=== PATIENT | female | born 1990 | race Caucasian/White ===

== ENCOUNTER 2020-01-21 15:48 | Emergency (ER) | payer OTHER ==
[~2020-01-21] VITALS: Ht 162.6 cm; Wt 54.4 kg
[~2020-01-21 15:48] MED LIST: APTIOM400 MG PO; CARBAMAZEP200 MG/10 PO; CELLCEPT500 MG PO; CIPRO500 MG PO; CYPROHEPTADINE H4 MG PO; DELTASONE20 MG PO; DIL100 PO; KEP500 PO; KEPPRA750 MG PO; LEVAQUIN500 M1 PO; NASAL MIST126 ML; NATURE'S BLEND500 M3 PO; NORCO1 TA2 PO; PLAQUENIL200 MG PO; PREDNISONE10 MG PO; PROZAC20 MG PO; RISPERDAL1 M1 PO; THE MEDICINE S400 I1 PO; TRILEPTAL150 MG PO; VITAMIN D34000 UNIT PO
[2020-01-21 16:07] VITALS: Ht 162.6 cm; Wt 54.4 kg
[2020-01-21 18:01] LABS: BASOPHIL % 0.4 % (0-2); PLATELET COUNT 189 x10^3mcL (130-400); RED CELL DISTRIBUTION WIDTH 13.9 % (11.5-14.5)
[2020-01-21 18:05] LABS: CALCIUM 8.3 mg/dL (8.5-10.1); CARBON DIOXIDE 21.3 mmol/L (21-32); CHLORIDE SERUM 100 mmol/L (98-107); CREATININE SERUM 0.8 mg/dL (0.6-1.0); GFR1 > 60 mL/min; GLUCOSE SERUM 93 mg/dL (74-106); POTASSIUM SERUM 3.1 mmol/L (3.5-5.1); SODIUM SERUM 138 mmol/L (136-145)
[2020-01-21 18:09] LABS: ALBUMIN 4.1 g/dL (3.4-5.0); ALKALINE PHOSPHATASE 114 U/L (46-116); ALT/SGPT 25 U/L (14-59); AST/SGOT 8 U/L (15-37); TOTAL PROTEIN, SERUM 6.3 g/dL (6.4-8.2)
[2020-01-21 21:44] VITALS: BP 134/82
== END 2020-01-21 21:44 | disposition home or self-care (01) ==
LOC: ED 15:48
PROVIDERS: Emergency Medicine
DX: G40.909 Epilepsy, unspecified, not intractable, without status epilepticus (principal); S00.512A Abrasion of oral cavity, initial encounter; M13.80 Other specified arthritis, unspecified site; R21 Rash and other nonspecific skin eruption; Z88.0 Allergy status to penicillin; Z88.1 Allergy status to other antibiotic agents
CPT/HCPCS: J1953; J2060; J2550; J3490; J7030; Q0162